=== PATIENT | female | born 1985 | race Caucasian/White ===

== ENCOUNTER 2017-05-13 21:19 | Emergency (ER) | payer BC, OTHER ==
[2017-05-13] MEDS ORDERED: DIPH/PERTUSS(ACELL)/TETANUS VAC/PF 0.5 ML SYR (>=10YO) IM ONE (22:03)
[2017-05-13] MEDS ORDERED: LIDOCAINE 1% INJ-PF (10 MG/ML) 30 ML SDV INJ ONE (22:43)
[2017-05-13] MEDS ORDERED: HYDROCODONE/ACETAMINOPHEN 5-325 MG TABLET PO ONE (23:31)
[2017-05-13] MEDS ORDERED: AMOXICILLIN TR/POT CLAVULANATE 500-125 MG TAB PO ONE (23:33)
--- NOTE | 2017-05-13 23:33 | ER Document Report ---
ED General - General Chief Complaint: Dog Bite Stated Complaint: POSSIBLE DOG BITE Time Seen by Provider: 05/13/17 22:36 Mode of Arrival: Ambulatory Information source: Patient Notes: 31-year-old female presents after a assault by dog just prior to arrival. Patient notes she was running got bit in multiple places. Worst on her wrist. Patient is able to move her hand. Denies any other severe injuries but notes small punctures abrasions all throughout TRAVEL OUTSIDE OF THE [place] IN LAST 30 DAYS: No - HPI Onset: Just prior to arrival Onset/Duration: Sudden Quality of pain: Burning Severity: Mild Pain Level: 1 Associated symptoms: Other Exacerbated by: Denies Relieved by: Denies Similar symptoms previously: No Recently seen / treated by doctor: No - Related Data Allergies/Adverse Reactions: No Known Allergies Allergy (Verified 05/13/17 21:57) Past Medical History - Social History Smoking Status: Never Smoker Cigarette use (# per day): No Chew tobacco use (# tins/day): No Smoking Education Provided: No Family History: Reviewed & Not Pertinent Patient has suicidal ideation: No Patient has homicidal ideation: No Renal/ Medical History: Denies: Hx Peritoneal Dialysis Review of Systems - Review of Systems Notes: REVIEW OF SYSTEMS: CONSTITUTIONAL : Denies fever, chills, or sweats. Denies recent illness. EENT: Denies eye, ear, throat, or mouth pain or symptoms. Denies nasal or sinus congestion or discharge. Denies throat, tongue, or mouth swelling or difficulty swallowing. CARDIOVASCULAR: Denies chest pain. Denies palpitations or racing or irregular heart beat. Denies ankle edema. RESPIRATORY: Denies cough, cold, or chest congestion. Denies shortness of breath, difficulty breathing, or wheezing. GASTROINTESTINAL: Denies abdominal pain or distention. Denies nausea, vomiting , or diarrhea. Denies blood in vomitus, stools, or per rectum. Denies black, tarry stools. Denies constipation. GENITOURINARY: Denies difficulty urinating, painful urination, burning, frequency, blood in urine, or discharge. FEMALE GENITOURINARY: Denies vaginal bleeding, heavy or abnormal periods, irregular periods. Denies vaginal discharge or odor. MUSCULOSKELETAL: Denies back or neck pain or stiffness. Denies joint pain or swelling. SKIN: Admits to bites abrasions HEMATOLOGIC : Denies easy bruising or bleeding. LYMPHATIC: Denies swollen, enlarged glands. NEUROLOGICAL: Denies confusion or altered mental status. Denies passing out or loss of consciousness. Denies dizziness or lightheadedness. Denies headache. Denies weakness or paralysis or loss of use of either side. Denies problems with gait or speech. Denies sensory loss, numbness, or tingling. Denies seizures. PSYCHIATRIC: Denies anxiety or stress. Denies depression, suicidal ideation, or homicidal ideation. ALL OTHER SYSTEMS REVIEWED AND NEGATIVE. PHYSICAL EXAMINATION: GENERAL: Well-appearing, well-nourished and in no acute distress. HEAD: Atraumatic, normocephalic. EYES: Pupils equal round and reactive to light, extraocular movements intact, conjunctiva are normal. ENT: Nares patent, oropharynx clear without exudates. Moist mucous membranes. NECK: Normal range of motion, supple without lymphadenopathy LUNGS: Breath sounds clear to auscultation bilaterally and equal. No wheezes rales or rhonchi. HEART: Regular rate and rhythm without murmurs ABDOMEN: Soft, nontender, nondistended abdomen. No guarding, no rebound. No masses appreciated. Female : deferred Musculoskeletal: Normal range of motion, no pitting or edema. No cyanosis. NEUROLOGICAL: Cranial nerves grossly intact. Normal speech, normal gait. Normal sensory, motor exams PSYCH: Normal mood, normal affect. SKIN: Bite to palmar wrist just proximal to the hyperthenar eminence gaping wounds tendon is noted but intact, multiple superficial punctures on left bicep tricep region left hand scratches to bilateral shins Dictation was performed using [employer] voice recognition software Physical Exam - Vital signs Vitals: Temp Pulse Resp BP Pulse Ox 98.5 F 93 18 127/83 H 98 05/13/17 21:57 05/13/17 21:57 05/13/17 21:57 05/13/17 21:57 05/13/17 21:57 Course - Re-evaluation Re-evalutation: 05/13/17 23:33 Area is cleansed extensively with Betadine, patient will be started on antibiotics given pain control I will loosely approximate the left wrist laceration 05/14/17 00:04 Wound was loosely approximated no tendon is actually noted on closer examination Very strict return precautions regarding infection have been explained to the patient Patient actually received rabies vaccinations 3 months ago After performing a Medical Screening Examination, I estimate there is LOW risk for OPEN FRACTURE, COMPARTMENT SYNDROME, TENDON RUPTURE, ACUTE NEUROVASCULAR INJURY, or RETAINED FOREIGN BODY, thus I consider the discharge disposition reasonable. Also, there is no evidence or peritonitis, sepsis, or toxicity. I have reevaluated this patient multiple times and no significant life threatening changes are noted. The patient and I have discussed the diagnosis and risks, and we agree with discharging home with close follow-up with the understanding that symptoms and presentations can change. We also discussed returning to the Emergency Department immediately if new or worsening symptoms occur. We have discussed the symptoms which are most concerning (e.g., changing or worsening pain, fever, numbness, weakness, cool or painful digits) that necessitate immediate return. 05/14/17 00:05 - Vital Signs Vital signs: Temp Pulse Resp BP Pulse Ox 98.5 F 93 18 127/83 H 98 05/13/17 21:57 05/13/17 21:57 05/13/17 21:57 05/13/17 21:57 05/13/17 21:57 Procedures - Laceration/Wound Repair Left Wrist Time completed: 23:50 Wound length (cm): 5 Wound's Depth, Shape: Irregular, Flap Laceration pre-procedure: Sterile PPE donned, Betadine prep applied, Sterile drapes applied Anesthetic type: 1% Lidocaine Volume Anesthetic (mLs): 7 Wound explored: Clean, No foreign body removed Irrigated w/ Saline (mLs): 4,000 Wound Debrided: Extensive Wound Repaired With: Sutures Suture Size/Type: 5:0, Ethilon Number of Sutures: 2 Post-procedure wound care: Sterile dressing applied Post-procedure NV exam normal: Yes Complications: No Discharge - Discharge Clinical Impression: Dog bite Qualifiers: Encounter type: initial encounter Qualified Code(s): W54.0XXA - Bitten by dog, initial encounter Condition: Stable Disposition: HOME, SELF-CARE Instructions: Animal Bites ([facility]) Additional Instructions: Follow up in 10 days for suture removal or return immediately if there are any other concerns Prescriptions: Amoxicillin/Potassium Clav [Augmentin 875-125 Tablet] 1 each PO BID #20 tablet Referrals: ANNMARIE HENSON NP [Primary Care Provider] - Follow up as needed
[2017-05-14 00:35] VITALS: BP 126/80
== END 2017-05-14 00:37 | disposition home or self-care (01) ==
LOC: ER 21:19
PROC: 0HQEXZZ Repair Left Lower Arm Skin, External Approach (ICD-10-PCS; principal; 2017-05-13)
DX: S61.552A Open bite of left wrist, initial encounter (principal); W54.0XXA Bitten by dog, initial encounter
CPT/HCPCS: 90471; 90715; 99283

== ENCOUNTER 2018-08-31 13:20 | Inpatient (IN) | payer OTHER ==
[2018-08-31] MEDS ORDERED: PIPERACILLIN/TAZOBACTAM 3.375 GM VIAL IV ONE (15:08)
--- NOTE | 2018-08-31 15:11 | ER Document Report ---
ED Animal Bite - General Chief Complaint: Cat Bite Stated Complaint: POSSIBLE CAT BITE Time Seen by Provider: 08/31/18 14:54 Mode of Arrival: Ambulatory Information source: Patient Notes: 33-year-old female presents the emergency department for a Bite that occurred 2 days ago. 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 The cat's rabies vaccine was up to date. She went to urgent care and was prescribed doxycycline. She states that she is taking this medication for the last 3 days. She has had 5 doses total. She states that the infection is worsening. She went and saw her family doctor today, Dr. Reid. He feels that the patient needed to come to the emergency department for workup and admission. The bite is located to the right wrist. There is swelling and erythema to the dorsum of the right hand and into the right forearm. Patient states that now she is having tightness to the thumb with some numbness. She denies any fever, chills. Tetanus up to date. TRAVEL OUTSIDE OF THE [place] IN LAST 30 DAYS: No - HPI Location of injury: RUE Severity of injury: Bitten Onset: Other - 2 days ago Quality of pain: Dull Severity: Mild Type of animal: Cat Appearance of animal: Appeared well Animal's immunizations: UTD - Related Data Allergies/Adverse Reactions: No Known Allergies Allergy (Verified 08/31/18 13:23) Past Medical History - General Information source: Patient - Social History Smoking Status: Never Smoker Family History: Reviewed & Not Pertinent Renal/ Medical History: Denies: Hx Peritoneal Dialysis - Immunizations Hx Diphtheria, Pertussis, Tetanus Vaccination: No Review of Systems - Review of Systems Constitutional: No symptoms reported EENT: No symptoms reported Cardiovascular: No symptoms reported Respiratory: No symptoms reported Gastrointestinal: No symptoms reported Genitourinary: No symptoms reported Female Genitourinary: No symptoms reported Musculoskeletal: No symptoms reported Skin: Change in color Hematologic/Lymphatic: No symptoms reported Neurological/Psychological: No symptoms reported -: Yes All other systems reviewed and negative Physical Exam - Vital signs Vitals: Temp Pulse Resp BP Pulse Ox 99.5 F 90 14 145/73 H 99 08/31/18 13:59 08/31/18 13:59 08/31/18 13:59 08/31/18 13:59 08/31/18 13:59 - Notes Notes: PHYSICAL EXAMINATION: GENERAL: Well-appearing, well-nourished and in no acute distress. HEAD: Atraumatic, normocephalic. EYES: Pupils equal round and reactive to light, extraocular movements intact, conjunctiva are normal. ENT: Nares patent, oropharynx clear without exudates. Moist mucous membranes. NECK: Normal range of motion, supple without lymphadenopathy LUNGS: Breath sounds clear to auscultation bilaterally and equal. No wheezes rales or rhonchi. HEART: Regular rate and rhythm without murmurs ABDOMEN: Soft, nontender, nondistended abdomen. No guarding, no rebound. No masses appreciated. Female : deferred Musculoskeletal: Erythema and swelling to the R dorsal hand and into the forearm. Cat bite puncture francois to the radial aspect of the wrist without purulent drainage. No fluctuance. 2+ radial pulse. Able to move fingers. Decreased ROM of thumb secondary to pain. NEUROLOGICAL: Cranial nerves grossly intact. Normal speech, normal gait. Normal sensory, motor exams PSYCH: Normal mood, normal affect. SKIN: Warm, Dry, cellulitis to the R hand and forearm- outlined. Course - Re-evaluation Re-evalutation: 08/31/18 16:59 Labs and imaging obtained. Cellulitis was seen on the x-ray. No foreign body was appreciated. White blood cell count is normal. As the patient has failed outpatient treatment on doxycycline I feel that she needs to be admitted to the hospital for IV antibiotics. Blood cultures were obtained. Patient was started on Zosyn. I spoke with Dr. Reid and Dr. Odonnell. Dr. Odonnell will consult on the patient. Dr. Reid is agreeable with admitting the patient. - Vital Signs Vital signs: Temp Pulse Resp BP Pulse Ox 99.2 F 90 21 H 120/90 H 100 08/31/18 16:42 08/31/18 13:59 08/31/18 16:42 08/31/18 16:42 08/31/18 16:42 - Laboratory Result Diagrams: 08/31/18 15:00 08/31/18 15:00 Discharge - Discharge Clinical Impression: Cellulitis Qualifiers: Site of cellulitis: extremity Site of cellulitis of extremity: upper extremity Laterality: right Qualified Code(s): L03.113 - Cellulitis of right upper limb Condition: Stable Disposition: ADMITTED OBSERVATION Admitting Provider: Jeanette Unit Admitted: Medical Floor Referrals: ANNMARIE HENSON NP [Primary Care Provider] - Follow up as needed
[2018-08-31 15:46] LABS: ABSOLUTE BASOPHILS # (AUTO) 0.1 10^3/uL (0.0-0.2); ABSOLUTE EOSINOPHILS # (AUTO) 0.2 10^3/uL (0.0-0.6); ABSOLUTE LYMPHOCYTES (AUTO) 2.2 10^3/uL (0.5-4.7); ABSOLUTE NEUT (AUTO) 6.7 10^3/uL (1.7-8.2); BASOPHILS % (AUTO) 0.8 % (0-2); EOSINOPHILS % (AUTO) 1.8 % (0-6); HEMATOCRIT 38.8 % (36.0-47.0); HEMOGLOBIN 13.4 g/dL (12.0-15.5); LYMPHOCYTES % (AUTO) 21.6 % (13-45); MEAN CORPUSCULAR HGB CONC 34.6 g/dL (32.0-36.0); MEAN CORPUSCULAR VOLUME 90 fl (80-97); MONOCYTES % (AUTO) 10.2 % (3-13); PLATELET COUNT 295 10^3/uL (150-450); RED BLOOD COUNT 4.33 10^6/uL (3.72-5.28); SEGMENTED NEUTROPHILS % (AUTO) 65.6 % (42-78); TOTAL CELLS COUNTED % (AUTO) 100 %; WHITE BLOOD COUNT 10.2 10^3/uL (4.0-10.5)
[2018-08-31 16:05] LABS: ALANINE AMINOTRANSFERASE 15 U/L (9-52); ALKALINE PHOSPHATASE 79 U/L (38-126); ANION GAP 9 (5-19); ASPARTATE AMINO TRANSFERASE 19 U/L (14-36); BILIRUBIN,DIRECT 0.2 mg/dL (0.0-0.4); BILIRUBIN,TOTAL 0.4 mg/dL (0.2-1.3); BLOOD UREA NITROGEN 13 mg/dL (7-20); CALCIUM 9.2 mg/dL (8.4-10.2); CARBON DIOXIDE 27 mmol/L (22-30); CHLORIDE 103 mmol/L (98-107); GLUCOSE 91 mg/dL (75-110); POTASSIUM 4.1 mmol/L (3.6-5.0); SODIUM 138.9 mmol/L (137-145); TOTAL PROTEIN 6.8 g/dL (6.3-8.2)
--- NOTE | 2018-08-31 18:57 | PDOC H&P ---
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 Her tetanus is current. Cat & patient rabies shots current. Past Medical History Cardiac Medical History: Reports: None Pulmonary Medical History: Reports: None EENT Medical History: Reports: Nose - allergic rhinitis Neurological Medical History: Reports: Migraine Endocrine Medical History: Reports: None Renal/ Medical History: Reports: None Malignancy Medical History: Reports: None GI Medical History: Reports: None Musculoskeltal Medical History: Reports: None Psychiatric Medical History: Reports: None Traumatic Medical History: Reports: Other - fractures L wrist pelvis R leg Hematology: Reports: None Infectious Medical History: Reports: None Past Surgical History Past Surgical History: Reports: Other - brest augmentation skin graft Social History Information Source: Dr. العراقي Lives with: Family Smoking Status: Former Smoker Frequency of Alcohol Use: Occasional Hx Recreational Drug Use: No Family History Family History: Reviewed & Not Pertinent Parental Family History Reviewed: Yes Children Family History Reviewed: Yes Sibling(s) Family History Reviewed.: Yes Medication/Allergy Home Medications: Doxycycline Hyclate [Vibramycin 100 mg Tablet] 100 mg PO BID 08/31/18 Ibuprofen [Motrin 800 mg Tablet] 800 mg PO Q8HP PRN 08/31/18 Medroxyprogesterone Acetate [Depo-Provera] 150 mg IM .EVERY 3 MONTHS 08/31/18 Allergies/Adverse Reactions: No Known Allergies Allergy (Verified 08/31/18 13:23) Review of Systems Constitutional: PRESENT: fever(s). ABSENT: headache(s) Nose, Mouth, and Throat: PRESENT: sore throat Cardiovascular: ABSENT: chest pain, dyspnea on exertion Respiratory: ABSENT: cough, dyspnea Gastrointestinal: ABSENT: abdominal pain, constipation, diarrhea, hematochezia, vomiting Genitourinary: ABSENT: dysuria, hematuria Musculoskeletal: PRESENT: joint swelling Integumentary: PRESENT: erythema, wounds Neurological: PRESENT: numbness - R hand Psychiatric: PRESENT: as per HPI Allergic/Immunologic: PRESENT: seasonal rhinorrhea Physical Exam Vital Signs: Temp Pulse Resp BP Pulse Ox 98.5 F 90 17 128/89 H 96 08/31/18 18:23 08/31/18 13:59 08/31/18 18:01 08/31/18 18:23 08/31/18 18:01 Intake & Output 08/30/18 08/31/18 09/01/18 07:59 07:59 07:59 Weight 164 lb 14.492 oz General appearance: PRESENT: mild distress Eye exam: ABSENT: conjunctiva pink Mouth exam: PRESENT: neck supple Neck exam: ABSENT: lymphadenopathy, tenderness, thyromegaly, tracheal deviation Respiratory exam: PRESENT: clear to auscultation teddy Cardiovascular exam: ABSENT: diastolic murmur, irregular rhythm, systolic murmur GI/Abdominal exam: ABSENT: mass, organolmegaly, tenderness Extremities exam: PRESENT: tenderness - radial L wrist pink warm swollen tender half way to elbow. Cant close fist. Musculoskeletal exam: PRESENT: tenderness Neurological exam: PRESENT: oriented to situation, other - intact touch L hand Psychiatric exam: PRESENT: appropriate affect Skin exam: PRESENT: erythema, warm, other - punctures span L1cmc Results Laboratory Results: 08/31/18 15:00 08/31/18 15:00 Assessment & Plan - Diagnosis (1) Cellulitis of right upper extremity Is this a current diagnosis for this admission?: Yes Plan: mary. Consult ortho - Inpatient Certification Based on my medical assessment, after consideration of the patient's comorbidities, presenting symptoms, or acuity I expect that the services needed warrant INPATIENT care.: Yes I certify that my determination is in accordance with my understanding of Medicare's requirements for reasonable and necessary INPATIENT services [42 CFR 412.3e].: Yes Medical Necessity: Failure to Improve With Outpatient Therapy, Need Close Monitoring Due to Risk of Patient Decompensation, Need for IV Antibiotics, Need for Surgery, Risk of Complication if Not Cared For in Hospital, Risk of Diagnosis Which Will Require Inpatient Eval/Care/Monitoring
[2018-08-31] MEDS ORDERED: ACETAMINOPHEN 325 MG TABLET PO PRN (20:23)
[2018-08-31] MEDS: PIPERACILLIN SODIUM/TAZOBACTAM 3.375 GM in NORMAL SALINE 100 ML IV SCH (22:10)
[2018-09-01] MEDS: PIPERACILLIN SODIUM/TAZOBACTAM 3.375 GM in NORMAL SALINE 100 ML IV SCH ×4 (03:33→21:01)
--- NOTE | 2018-09-01 07:22 | PDOC PROGRESS REPORT ---
Subjective Progress Note for:: 09/01/18 Subjective:: much less pain since 2nd zosyn Reason For Visit: CELLULITIS R HAND Physical Exam Vital Signs: Temp Pulse Resp BP Pulse Ox 97.8 F 79 17 110/71 100 09/01/18 03:47 09/01/18 03:47 09/01/18 03:47 09/01/18 03:47 09/01/18 03:47 Intake & Output 08/30/18 08/31/18 09/01/18 07:59 07:59 07:59 Intake Total 922 Balance 922 Weight 164 lb 3.91 oz General appearance: PRESENT: no acute distress Respiratory exam: PRESENT: clear to auscultation teddy Cardiovascular exam: ABSENT: diastolic murmur, irregular rhythm, systolic murmur GI/Abdominal exam: ABSENT: mass, organolmegaly, tenderness Musculoskeletal exam: PRESENT: tenderness - less, other - R wrist less swollen Skin exam: PRESENT: erythema - receding Results Laboratory Results: 08/31/18 15:00 08/31/18 15:00 08/31/18 08/31/18 15:00 15:00 WBC 10.2 RBC 4.33 Hgb 13.4 Hct 38.8 MCV 90 MCH 31.0 MCHC 34.6 RDW 13.0 Plt Count 295 Seg Neutrophils % 65.6 Lymphocytes % 21.6 Monocytes % 10.2 Eosinophils % 1.8 Basophils % 0.8 Absolute Neutrophils 6.7 Absolute Lymphocytes 2.2 Absolute Monocytes 1.0 Absolute Eosinophils 0.2 Absolute Basophils 0.1 Sodium 138.9 Potassium 4.1 Chloride 103 Carbon Dioxide 27 Anion Gap 9 BUN 13 Creatinine 0.64 Est GFR ( Amer) > 60 Est GFR (Non-Af Amer) > 60 Glucose 91 Calcium 9.2 Total Bilirubin 0.4 AST 19 ALT 15 Alkaline Phosphatase 79 Total Protein 6.8 Albumin 4.0 Assessment & Plan - Diagnosis (1) Cellulitis of right upper extremity Is this a current diagnosis for this admission?: Yes Plan: markedly better. Continue zosyn - Inpatient Certification Medical Necessity: Failure to Improve With Outpatient Therapy, Need Close Monitoring Due to Risk of Patient Decompensation, Need for IV Antibiotics, Risk of Complication if Not Cared For in Hospital, Risk of Diagnosis Which Will Require Inpatient Eval/Care/Monitoring
--- NOTE | 2018-09-01 07:33 | PDOC CONSULTATION ---
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 She was seen in urgent care almost immediately and started on doxycycline. In part in spite of this the patient's erythema, induration, and reduced function progressed. She was seen by Dr. Reid in the office who recognized his cellulitis. He admits the patient for cellulitis and start her on Pipracil 1. Since she is been started on Pipracil and the patient's erythema and induration have retreated with respect to ink francois on the skin. Likewise her function has improved. Past Medical History Cardiac Medical History: Reports: None Pulmonary Medical History: Reports: None EENT Medical History: Reports: Nose - allergic rhinitis Neurological Medical History: Reports: Migraine Endocrine Medical History: Reports: None Renal/ Medical History: Reports: None Malignancy Medical History: Reports: None GI Medical History: Reports: None Musculoskeltal Medical History: Reports: None Psychiatric Medical History: Reports: None Traumatic Medical History: Reports: Other - fractures L wrist pelvis R leg Hematology: Reports: None Infectious Medical History: Reports: None Past Surgical History Past Surgical History: Reports: Other - brest augmentation skin graft Social History Lives with: Family Smoking Status: Former Smoker Number of Years Smokin Frequency of Alcohol Use: Occasional Hx Recreational Drug Use: No Drugs: None Hx Prescription Drug Abuse: No Family History Family History: Reviewed & Not Pertinent Parental Family History Reviewed: No Children Family History Reviewed: No Sibling(s) Family History Reviewed.: No Medication/Allergy Home Medications: Doxycycline Hyclate [Vibramycin 100 mg Tablet] 100 mg PO BID 08/31/18 Ibuprofen [Motrin 800 mg Tablet] 800 mg PO Q8HP PRN 08/31/18 Medroxyprogesterone Acetate [Depo-Provera] 150 mg IM .EVERY 3 MONTHS 08/31/18 Allergies/Adverse Reactions: No Known Allergies Allergy (Verified 08/31/18 13:23) Review of Systems All systems: as per [facility] Physical Exam Vital Signs: Temp Pulse Resp BP Pulse Ox 36.6 C 79 17 110/71 100 09/01/18 03:47 09/01/18 03:47 09/01/18 03:47 09/01/18 03:47 09/01/18 03:47 Intake & Output 08/31/18 09/01/18 09/02/18 06:59 06:59 06:59 Intake Total 922 Balance 922 Weight 74.5 kg Physical Exam: The patient is a middle-aged white female lying in a hospital bed. She is alert, oriented, and appropriate. She is able to articulate her clinical course with accuracy and details. General appearance: PRESENT: no acute distress, mild distress, well-developed, well-nourished Head exam: PRESENT: normocephalic Respiratory exam: PRESENT: unlabored Cardiovascular exam: PRESENT: RRR Pulses: PRESENT: normal radial pulses Vascular exam: PRESENT: normal capillary refill GI/Abdominal exam: PRESENT: soft Rectal exam: PRESENT: deferred Extremities exam: PRESENT: other - Right hand has a free form and closed circular type pattern inked over the dorsum of the distal radius, the radiocarpal region, and out onto the metacarpal region. In the center of this there is erythema, induration, and tenderness. However the erythema induration and tenderness have reached corrected with respect to where the ink beth is on her skin assuming that this demarcated the previous extent of the inflammatory process. This point she is able to flex and extend her digits although not make a tight fist. She has difficulty flexing and extending her wrist at this point. There are 3 punctate stab wounds over the region of the thenar eminence to dorsally and one volarly. These seem to be healing without drainage and are covered by eschar. There is brisk capillary refill and sensory examination is intact to light touch in each of the digits. Psychiatric exam: PRESENT: appropriate affect, normal mood. ABSENT: homicidal ideation, suicidal ideation Skin exam: PRESENT: dry, intact, warm. ABSENT: cyanosis, rash Results Laboratory Results: 08/31/18 15:00 08/31/18 15:00 08/31/18 08/31/18 15:00 15:00 WBC 10.2 RBC 4.33 Hgb 13.4 Hct 38.8 MCV 90 MCH 31.0 MCHC 34.6 RDW 13.0 Plt Count 295 Seg Neutrophils % 65.6 Lymphocytes % 21.6 Monocytes % 10.2 Eosinophils % 1.8 Basophils % 0.8 Absolute Neutrophils 6.7 Absolute Lymphocytes 2.2 Absolute Monocytes 1.0 Absolute Eosinophils 0.2 Absolute Basophils 0.1 Sodium 138.9 Potassium 4.1 Chloride 103 Carbon Dioxide 27 Anion Gap 9 BUN 13 Creatinine 0.64 Est GFR ( Amer) > 60 Est GFR (Non-Af Amer) > 60 Glucose 91 Calcium 9.2 Total Bilirubin 0.4 AST 19 ALT 15 Alkaline Phosphatase 79 Total Protein 6.8 Albumin 4.0 Status: Imported from PACS Assessment & Plan - Diagnosis (1) Cellulitis of right upper extremity Is this a current diagnosis for this admission?: Yes Plan: 33-year-old white female status post cat bite approximately 3 days ago now with a soft tissue inflammatory process consistent with a cellulitis. This seems to be resolving fairly significantly with the administration Pipracil and. Recomm endation is for continued observation and administration of appropriate antibiotics. I be glad to see the patient back as an outpatient if her pain and functional disability persist. - Time Time Spent: 50 to 70 Minutes Anticipated discharge: Home Within: Other
[2018-09-01] MEDS: ENOXAPARIN SODIUM INJ 40 MG/0.4 ML DISP.SYRIN SUBCUT SCH (09:47)
--- NOTE | 2018-09-01 15:44 | RADIOLOGY REPORT (SQ) ---
EXAM DESCRIPTION: Right wrist three views COMPLETED DATE/TIME: 08/31/2018, 1532 hours REASON FOR STUDY: Cat bite 1 day ago, now redness swelling right wrist and forearm COMPARISON: None TECHNIQUE: Three views right wrist LIMITATIONS: None FINDINGS: Normal bone density. No puncture wound into the distal right radius or carpal bones. No retained radiopaque foreign body or soft tissue gas. There is diffuse subcutaneous stranding in t he fat along the right distal radius/distal forearm from cellulitis. IMPRESSION: No puncture wound of the distal radius from cat bite Diffuse right radial forearm and wrist soft tissue swelling without radiopaque foreign body or soft t issue gas. Report called to emergency room attending physician at the time of dictation Dr Keen Reading location - IP/workstation name: [email or web address]
[2018-09-02] MEDS: PIPERACILLIN SODIUM/TAZOBACTAM 3.375 GM in NORMAL SALINE 100 ML IV SCH ×4 (02:53→20:55)
--- NOTE | 2018-09-02 07:29 | PDOC PROGRESS REPORT ---
Subjective Progress Note for:: 09/02/18 Subjective:: can close fist now. Thumb still hurts Reason For Visit: CELLULITIS R HAND Physical Exam Vital Signs: Temp Pulse Resp BP Pulse Ox 98.1 F 67 16 109/60 97 09/02/18 04:00 09/02/18 04:00 09/02/18 04:00 09/02/18 04:00 09/02/18 04:00 Intake & Output 08/31/18 09/01/18 09/02/18 07:59 07:59 07:59 Intake Total 922 3450 Balance 922 3450 Weight 164 lb 3.91 oz 166 lb 3.657 oz General appearance: PRESENT: no acute distress Respiratory exam: PRESENT: clear to auscultation teddy Cardiovascular exam: ABSENT: diastolic murmur, irregular rhythm, systolic murmur GI/Abdominal exam: ABSENT: mass, organolmegaly, tenderness Skin exam: PRESENT: erythema - receded to dorsal R hand & thumb. Less tender. No fluctulance. Results Laboratory Results: 08/31/18 15:00 08/31/18 15:00 Impressions: Wrist X-Ray 08/31/18 15:04 IMPRESSION: No puncture wound of the distal radius from cat bite Diffuse right radial forearm and wrist soft tissue swelling without radiopaque foreign body or soft tissue gas. Report called to emergency room attending physician at the time of dictation Dr Keen Assessment & Plan - Diagnosis (1) Cellulitis of right upper extremity Is this a current diagnosis for this admission?: Yes Plan: 1 more day zosyn - Inpatient Certification Medical Necessity: Failure to Improve With Outpatient Therapy, Need Close Monitoring Due to Risk of Patient Decompensation, Need for IV Antibiotics, Risk of Complication if Not Cared For in Hospital, Risk of Diagnosis Which Will Require Inpatient Eval/Care/Monitoring
[2018-09-02] MEDS: ENOXAPARIN SODIUM INJ 40 MG/0.4 ML DISP.SYRIN SUBCUT SCH (13:09)
[2018-09-03 00:38] VITALS: BP 110/64
[2018-09-03] MEDS: PIPERACILLIN SODIUM/TAZOBACTAM 3.375 GM in NORMAL SALINE 100 ML IV SCH (03:07)
--- NOTE | 2018-09-03 09:28 | PDOC DISCHARGE SUMMARY ---
General - Admit/Disc Date/PCP Admission Date/Primary Care Provider: 08/31/18 17:41 ANNMARIE HENSON NP Discharge Date: 09/03/18 - Discharge Diagnosis (1) Cellulitis of right upper extremity Is this a current diagnosis for this admission?: Yes - Additional Information Resuscitation Status: Full Code Discharge Diet: Regular Discharge Activity: Activity As Tolerated Prescriptions: Amox Tr/Potassium Clavulanate [Augmentin 875-125 mg Tablet] 1 tab PO Q12H #14 tablet Home Medications: Medroxyprogesterone Acetate [Depo-Provera] 150 mg IM .EVERY 3 MONTHS 08/31/18 Amox Tr/Potassium Clavulanate [Augmentin 875-125 mg Tablet] 1 tab PO Q12H #14 tablet 09/03/18 History of Present Illness History of Present Illness: 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 Her tetanus is current. Cat & patient rabies shots current. Hospital Course Hospital Course: Pain redness swelling and heat improved markedly on 3d zosyn. She can now close her fist. Blood cultures are negative. Physical Exam Vital Signs: Temp Pulse Resp BP Pulse Ox 98.2 F 74 18 110/64 98 09/03/18 00:00 09/03/18 00:00 09/03/18 00:00 09/03/18 00:00 09/03/18 00:00 Intake & Output 09/01/18 09/02/18 09/03/18 07:59 07:59 07:59 Intake Total 922 3450 400 Balance 922 3450 400 Weight 164 lb 3.91 oz 166 lb 3.657 oz General appearance: PRESENT: no acute distress Respiratory exam: PRESENT: clear to auscultation teddy Cardiovascular exam: ABSENT: diastolic murmur, irregular rhythm, systolic murmur GI/Abdominal exam: ABSENT: mass, organolmegaly, tenderness Extremities exam: ABSENT: pedal edema Skin exam: PRESENT: erythema - R dorsal hand almost gone Results Laboratory Results: 08/31/18 15:00 08/31/18 15:00 Labs- Last Values WBC 10.2 10^3/uL (4.0-10.5) 08/31/18 15:00 RBC 4.33 10^6/uL (3.72-5.28) 08/31/18 15:00 Hgb 13.4 g/dL (12.0-15.5) 08/31/18 15:00 Hct 38.8 % (36.0-47.0) 08/31/18 15:00 MCV 90 fl (80-97) 08/31/18 15:00 MCH 31.0 pg (27.0-33.4) 08/31/18 15:00 MCHC 34.6 g/dL (32.0-36.0) 08/31/18 15:00 RDW 13.0 % (11.5-14.0) 08/31/18 15:00 Plt Count 295 10^3/uL (150-450) 08/31/18 15:00 Seg Neutrophils % 65.6 % (42-78) 08/31/18 15:00 Lymphocytes % 21.6 % (13-45) 08/31/18 15:00 Monocytes % 10.2 % (3-13) 08/31/18 15:00 Eosinophils % 1.8 % (0-6) 08/31/18 15:00 Basophils % 0.8 % (0-2) 08/31/18 15:00 Absolute Neutrophils 6.7 10^3/uL (1.7-8.2) 08/31/18 15:00 Absolute Lymphocytes 2.2 10^3/uL (0.5-4.7) 08/31/18 15:00 Absolute Monocytes 1.0 10^3/uL (0.1-1.4) 08/31/18 15:00 Absolute Eosinophils 0.2 10^3/uL (0.0-0.6) 08/31/18 15:00 Absolute Basophils 0.1 10^3/uL (0.0-0.2) 08/31/18 15:00 Sodium 138.9 mmol/L (137-145) 08/31/18 15:00 Potassium 4.1 mmol/L (3.6-5.0) 08/31/18 15:00 Chloride 103 mmol/L (98-107) 08/31/18 15:00 Carbon Dioxide 27 mmol/L (22-30) 08/31/18 15:00 Anion Gap 9 (5-19) 12/19/18 15:00 BUN 13 mg/dL (7-20) 08/31/18 15:00 Creatinine 0.64 mg/dL (0.52-1.25) 08/31/18 15:00 Est GFR ( Amer) > 60 (>60) 08/31/18 15:00 Est GFR (Non-Af Amer) > 60 (>60) 08/31/18 15:00 Glucose 91 mg/dL (75-110) 08/31/18 15:00 Calcium 9.2 mg/dL (8.4-10.2) 08/31/18 15:00 Total Bilirubin 0.4 mg/dL (0.2-1.3) 08/31/18 15:00 Direct Bilirubin 0.2 mg/dL (0.0-0.4) 08/31/18 15:00 Neonat Total Bilirubin Not Reportable 08/31/18 15:00 Neonat Direct Bilirubin Not Reportable 08/31/18 15:00 Neonat Indirect Bili Not Reportable 08/31/18 15:00 AST 19 U/L (14-36) 08/31/18 15:00 ALT 15 U/L (9-52) 08/31/18 15:00 Alkaline Phosphatase 79 U/L (38-126) 08/31/18 15:00 Total Protein 6.8 g/dL (6.3-8.2) 08/31/18 15:00 Albumin 4.0 g/dL (3.5-5.0) 08/31/18 15:00 Impressions: Wrist X-Ray 08/31/18 15:04 IMPRESSION: No puncture wound of the distal radius from cat bite Diffuse right radial forearm and wrist soft tissue swelling without radiopaque foreign body or soft tissue gas. Report called to emergency room attending physician at the time of dictation Dr Keen Qualifiers - * PATIENT BEING DISCHARGED WITH ANY OF THE FOLLOWING DIAGNOSIS: No Plan Discharge Plan: home on augmentin. 6d ov
== END 2018-09-03 08:04 | disposition home or self-care (01) | DRG 603 ==
LOC: ER 13:20 → EH 17:31 → OBSVTOIN 17:41 → 2N 18:52
PROVIDERS: ADMIT Family Medicine; ATTEND Family Medicine
PROC: 3E0234Z Introduction of Serum, Toxoid and Vaccine into Muscle, Percutaneous Approach (ICD-10-PCS; principal; 2018-09-03)
DX: L03.113 Cellulitis of right upper limb (principal); W55.01XA Bitten by cat, initial encounter; Y93.F9 Activity, other caregiving; Y92.59 Other trade areas as the place of occurrence of the external cause; Z23 Encounter for immunization
CPT/HCPCS: 36415; 80053; 85025; 87040; 90471; 90686; 96365; 99284; G0008; J1650; J2543